=== PATIENT | male | born 1975 | race Caucasian/White ===

== ENCOUNTER 2017-03-18 15:56 | Emergency (ER) | payer BC ==
[~2017-03-18] VITALS: Ht 182.9 cm; Wt 83.9 kg
[2017-03-18] MEDS ORDERED: Ketorolac 30mg Inj IV ONE (16:30)
[2017-03-18] MEDS ORDERED: Dexamethasone 4mg/ml vial IVP ONE (16:30)
[2017-03-18] MEDS ORDERED: Ampicillin/Sulbactam Sod 3 GM in NS 110 ML IVPB ONE (16:30)
[2017-03-18] MEDS ORDERED: Unasyn 3gm Inj ONE (16:58)
[2017-03-18 17:11] VITALS: BP 124/79
[2017-03-18 17:13] LABS: EOSINOPHILS % (AUTO) 1.8 % (0.0-3.0); LYMPHOCYTES % (AUTO) 16.2 % (20.0-45.0); MEAN CORPUSCULAR HEMOGLOBIN 32.7 PG (27.0-31.0); MEAN CORPUSCULAR HGB CONC 34.5 G/DL (32.0-36.0); MEAN CORPUSCULAR VOLUME 95 FL (80-99); MEAN PLATELET VOLUME 6.8 FL (6.5-10.1); MONOCYTES % (AUTO) 10.3 % (1.0-10.0); NEUTROPHILS % (AUTO) 70.6 % (45.0-75.0); PLATELET COUNT 155 K/UL (150-450); RED BLOOD COUNT 5.02 M/UL (4.70-6.10); RED CELL DISTRIBUTION WIDTH 11.6 % (11.6-14.8); WHITE BLOOD COUNT 8.7 K/UL (4.8-10.8)
[2017-03-18 17:49] LABS: ALANINE AMINOTRANSFERASE 17 U/L (3-41); ALBUMIN/GLOBULIN RATIO 1.2 (1.0-2.7); ANION GAP 14 (5-15); ASPARTATE AMINO TRANSFERASE 19 U/L (5-40); CALCIUM 8.9 mg/dL (8.6-10.2); CARBON DIOXIDE 26 mEQ/L (20-30); CHLORIDE 97 mEQ/L (98-107); GLOMERULAR FILTRATION RATE > 60 mL/min (>60); HEMOLYSIS 5; POTASSIUM 4.3 mEQ/L (3.4-4.9); SODIUM 137 mEQ/L (135-145); TOTAL PROTEIN 7.1 g/dL (6.6-8.7)
[2017-03-18] MEDS ORDERED: PREDNISONE20 MG ORAL (18:48)
[2017-03-18] MEDS ORDERED: AUGMENTIN 500-1 EACH ORAL (18:48)
[2017-03-18] MEDS ORDERED: IBUPROFEN600 MG ORAL (18:48)
[2017-03-18 19:11] VITALS: BP 120/80
--- NOTE | 2017-03-18 21:05 | Emergency Room Report ---
History of Present Illness General Chief Complaint: Sore Throat Source: Patient Present Illness [facility] The patient is a 41-year-old male with a history of HIV presenting for sore throat. Symptoms began approximately one week prior and have been worsening. The patient was seen by urgent care and states he had a throat culture and rapid strep which were both unremarkable. He was advised to come to the emergency department. The patient was also diagnosed with giardia for which he has been having diarrhea and an STD for which he received rocephin today. Pain of the throat is described as an 8/10 dull ache primarily to the left side. It does not radiate. Pain worse with swallowing. He denies other symptoms including fever, chills, KENNY, dizziness, neck pain, cough, SOB Allergies: Coded Allergies: No Known Allergies (Unverified , 03/18/17) Patient History Past Medical History: see triage record, HIV Pertinent Family History: none Reviewed Nursing Documentation: PMH: Agreed, PSxH: Agreed Nursing Documentation-PMH Past Medical History: No History, Except For Review of Systems All Other Systems: negative except mentioned in HPI Physical Exam Vital Signs Date Time Temp Pulse Resp B/P Pulse Ox O2 Delivery O2 Flow Rate FiO2 03/18/17 16:04 98.6 91 18 124/79 95 Room Air Sp02 EP Interpretation: reviewed, normal General Appearance: no apparent distress, alert, GCS 15, non-toxic Head: normocephalic, atraumatic Eyes: bilateral eye PERRL, bilateral eye normal inspection ENT: hearing grossly normal, normal voice, tonsillar swelling - L side, other - Edema to L oropharynx Respiratory: chest non-tender, lungs clear, normal breath sounds, speaking full sentences Cardiovascular #1: regular rate, rhythm, no edema Genitourinary: normal inspection, no CVA tenderness Musculoskeletal: back normal, gait/station normal, normal range of motion, non- tender Neurologic: alert, oriented x3, responsive, motor strength/tone normal, sensory intact, speech normal Psychiatric: judgement/insight normal, memory normal, mood/affect normal, no suicidal/homicidal ideation Skin: normal color, no rash, warm/dry, well hydrated Lymphatic: no adenopathy Medical Decision Making PA Attestation Dr. Reyes is my supervising physician. Patient management was discussed with my supervising physician Diagnostic Impression: Primary Impression: Pharyngitis, acute Qualified Codes: J02.9 - Acute pharyngitis, unspecified ER Course The patient is a 41-year-old male with a history of HIV presenting for sore throat Differential diagnosis include but not limited to pharyngitis, paratonsillar abscess, epiglottitis, sinusitis PE: vitals WNL. NAD HEENT: there is edema to the L oropharynx and tonsil. No exudate. No lymphadenopathy. Labs unremarkable. See radiology report for CT of neck Pt is given IV unasyn, Decadron, and Toradol and is feeling better. He will be AL'ed home with Augmentin and steroids. He is given information to FU with ENT. ER precautions given Laboratory Tests Test 03/18/17 17:05 White Blood Count 8.7 K/UL (4.8-10.8) Red Blood Count 5.02 M/UL (4.70-6.10) Hemoglobin 16.4 G/DL (14.2-18.0) Hematocrit 47.4 % (42.0-52.0) Mean Corpuscular Volume 95 FL (80-99) Mean Corpuscular Hemoglobin 32.7 PG (27.0-31.0) H Mean Corpuscular Hemoglobin Concent 34.5 G/DL (32.0-36.0) Red Cell Distribution Width 11.6 % (11.6-14.8) Platelet Count 155 K/UL (150-450) Mean Platelet Volume 6.8 FL (6.5-10.1) Neutrophils (%) (Auto) 70.6 % (45.0-75.0) Lymphocytes (%) (Auto) 16.2 % (20.0-45.0) L Monocytes (%) (Auto) 10.3 % (1.0-10.0) H Eosinophils (%) (Auto) 1.8 % (0.0-3.0) Basophils (%) (Auto) 1.0 % (0.0-2.0) Sodium Level 137 mEQ/L (135-145) Potassium Level 4.3 mEQ/L (3.4-4.9) Chloride Level 97 mEQ/L (98-107) L Carbon Dioxide Level 26 mEQ/L (20-30) Anion Gap 14 (5-15) Blood Urea Nitrogen 21 mg/dL (7-23) Creatinine 1.0 mg/dL (0.7-1.2) Estimate Glomerular Filtration Rate > 60 mL/min (>60) Glucose Level 96 mg/dL (74-106) Calcium Level 8.9 mg/dL (8.6-10.2) Total Bilirubin 0.4 mg/dL (0.0-1.2) Aspartate Amino Transferase (AST) 19 U/L (5-40) Alanine Aminotransferase (ALT) 17 U/L (3-41) Alkaline Phosphatase 71 U/L (40-129) Total Protein 7.1 g/dL (6.6-8.7) Albumin 3.9 g/dL (3.5-5.2) Globulin 3.2 g/dL Albumin/Globulin Ratio 1.2 (1.0-2.7) Lab Results Impression CBC, CMP unremarkable CT/MRI/US Diagnostic Results CT/MRI/US Diagnostic Results : Imaging Test Ordered: CT neck with IV Impression Per radiologist: There is soft tissue swelling of the left oral pharyngeal soft tissue and tonsils Last Vital Signs Date Time Temp Pulse Resp B/P Pulse Ox O2 Delivery O2 Flow Rate FiO2 03/18/17 19:11 98.4 89 17 120/80 100 Room Air Status: improved Disposition: HOME, SELF-CARE Condition: Improved Scripts Amoxicillin/Potassium Clav 500-125 Tablet* (AUGMENTIN 500-125 TABLET*) 1 Each Tablet 1 TAB ORAL THREE TIMES A DAY, #21 TAB Prov: TERZIAN,ERUM P.A. 03/18/17 Prednisone* (PREDNISONE*) 20 Mg Tablet 40 MG ORAL DAILY, #8 TAB Prov: TERZIAN,ERUM P.A. 03/18/17 Ibuprofen* (MOTRIN*) 600 Mg Tablet 600 MG ORAL Q8H Y for For Pain, #30 TAB 0 Refills Prov: TERZIAN,ERUM P.A. 03/18/17 Referrals: DORINDA AGARWAL Patient Instructions: Pharyngitis Additional Instructions: I discussed my findings with the patient. All questions and concerns have been answered. Treatment and medication compliance have been addressed. I advised the patient that they need to follow up with PMD in 3-5 days. Return to ED if pain remains or worsens, cough worsens or remains, you notice blood in your sputum, you notice wheezing, you experience a fever, or if needed for any reason. Patient verbalized understanding of discharge instructions. The patient will followup with ENT as instructed ERUM AVALOS March 18, 2017 21:05
--- NOTE | 2017-03-19 10:31 | Diagnostic Imaging Report ---
Indications: Neck pain Technique: Continuous helical CT imaging of the neck from the base of the skull through the aortic arch was performed with automatic exposure control following intravenous administration of nonionic iodine contrast, on a Siemens sensation [address] scanner. Axial, coronal, and sagittal images were reconstructed at 3 mm slice thickness. CTDI volume(s): 8x2, 17 mGy Total DLP: 588 mGy-cm Findings: Comparison: None Visualized portions of brain: Unremarkable. Paranasal sinuses: Small polypoid soft tissue density in base of each maxillary sinus; remainder visualized portions unremarkable. Nasopharynx: Unremarkable. Oral cavity: Multiple images degraded by artifact from metallic dental fillings. Unobscured anatomy unremarkable.. Oropharynx: Mild asymmetric soft tissue fullness of left tonsillar pillar without obvious focal abnormality. Contiguous asymmetric narrowing of left vallecula.. Epiglottis: Unremarkable. False vocal cords: Unremarkable. True vocal cords: Unremarkable. Subglottic airway: Unremarkable. Prevertebral soft tissues: Unremarkable. Bilateral parapharyngeal soft tissues: Unremarkable. Lymph nodes: Lymph nodes anterior to the left carotid artery and internal jugular vein are slightly more prominent than their right-sided counterparts, measuring up to 13 mm in diameter. No other enlargement demonstrated.. Superficial soft tissues: Unremarkable. Parotid glands: Unremarkable. Submandibular glands: Unremarkable. Thyroid gland: Unremarkable. Vascular structures: No significant abnormality identified. Skeletal structures: Unremarkable. Lung apices: Unremarkable. Upper mediastinum: Unremarkable. IMPRESSION: Asymmetric enlargement of left tonsillar pillar, nonspecific. No associated focal mass or fluid collection/abscess. Both inflammatory and, less likely, neoplastic etiologies must be considered. No associated oropharyngeal airway narrowing. Consider MRI for further evaluation, as clinically indicated. Asymmetric narrowing of the adjacent left lateral may be secondary to above, tongue base mucosal hypertrophy/polyps, secretions, or a combination. Mild prominence of left-sided level II lymph nodes, likely reactive to above Bilateral maxillary sinus polyps versus retention cysts This correlates with Dr. Dubose's preliminary report. The CT scanner at [facility] is accredited by the [employer] and the scans are performed using protocols designed to limit radiation exposure to as low as reasonably achievable to attain images of sufficient resolution adequate for diagnostic evaluation.
== END 2017-03-18 19:22 | disposition home or self-care (01) ==
LOC: EMR 16:34
DX: J02.9 Acute pharyngitis, unspecified (principal); A07.1 Giardiasis [lambliasis]; A64 Unspecified sexually transmitted disease; Z79.2 Long term (current) use of antibiotics
CPT/HCPCS: 36415; 70491; 80053; 85025; 96374; 96375; 99284; J0295; J1100; J1885; Q9967